=== PATIENT | female | born 1945 | race Caucasian/White ===

== ENCOUNTER 2022-01-11 09:30 | Emergency (ER) | payer OTHER ==
--- NOTE | 2022-01-11 09:43 | NUR ---
PATIENT LEFT WITHOUT BEING SEEN BY DR. FINCH. NO FURTHER CARE PROVIDED FOR PATIENT.
== END 2022-01-11 09:43 | disposition left against medical advice (07) ==
LOC: MED 09:30 → EDBD 09:30 → MED 09:43
DX: R10.9 Unspecified abdominal pain (principal); Z53.21 Procedure and treatment not carried out due to patient leaving prior to being seen by health care provider